=== PATIENT | female | born 1985 | race Native Hawaiian/Other Pacific Islander ===

== ENCOUNTER 2020-03-29 16:22 | Outpatient (CLI) | payer OTHER ==
[~2020-03-29 16:22] MED LIST: ACYCLOVIR400 MG OR; TRAM50TA PO
== END 2020-03-29 19:23 | disposition home or self-care (01) ==
LOC: RAD 16:22
DX: R06.00 Dyspnea, unspecified (principal)

== ENCOUNTER 2021-02-15 00:01 | Emergency (ER) | payer OTHER ==
[~2021-02-15] VITALS: Ht 152.4 cm; Wt 58.5 kg
[2021-02-15 02:13] VITALS: BP 120/84; TEMP 98.1
== END 2021-02-15 02:13 | disposition home or self-care (01) ==
LOC: ED 00:01
DX: M25.532 Pain in left wrist (principal)
CPT/HCPCS: 96372; 99283; J1885

== ENCOUNTER 2022-08-17 13:52 | Outpatient (CLI) | payer OTHER | END 2022-08-17 19:06 | disposition home or self-care (01) | LOC: RAD 13:52 | PROVIDERS: ATTEND Nurse Practitioner Family | DX: R06.2 Wheezing (principal) ==